=== PATIENT | female | born 1985 | race Caucasian/White ===

== ENCOUNTER 2017-03-14 13:39 | Emergency (ER) | payer OTHER ==
[2017-03-14 13:43] VITALS: TEMP 98.8
--- NOTE | 2017-03-14 14:49 | EDPHY ---
H & P Time Seen by Provider: 03/14/17 14:28 HPI/ROS: HPI Neck pain. 31-year-old female by private vehicle with her friend. This patient reports that she slipped backwards on some wet ground yesterday landing on her buttocks and then striking the back of her head on the ground. There was no loss of consciousness. She has not had any nausea or vomiting. No confusion according to her friend. She complains of right lateral neck pain, paraspinal. She reports that her neck feels stiff. She denies any midline pain. She has had no loss of sensation or weakness in her extremities. No other complaints. ROS: Constitutional: No fever, no chills. No weakness. Eyes: No discharge. No changes in vision. Musculoskeletal: No back pain. As above. No extremity pain. . Skin: No rashes. No lacerations or abrasions. Neurological: No headache. No focal weakness or altered sensation. Past medical history: Denies any significant past medical history. Social history: Here with her friend. Nonsmoker. Drinks alcohol socially. Physical Exam: General Appearance: Alert, no distress. This patient is responding to questions appropriately and in full sentences. This patient appears well- hydrated and well-nourished. Head: Normocephalic atraumatic. Face: Facial bones are stable on palpation. Eyes: Pupils equal and round and reactive to light, no pallor or injection. No lid erythema or edema. ENT, Mouth: Mucous membranes moist. Dentition is intact. No malocclusion of the jaw. No tongue lacerations or abrasions. Pharynx is clear. The bilateral nasal canals are clear. No septal hematoma. Neurological: Motor sensory function is intact. Cranial nerves are normal. Cerebellar function intact. Skin: Warm and dry, no rashes. No lacerations, abrasions or contusions. Musculoskeletal: Neck is supple she has vague tenderness on palpation through the right mid trapezius. The trachea is midline. No midline cervical, thoracic , lumbar or sacral tenderness on palpation. No flank tenderness on palpation. Extremities are symmetrical, full range of motion. All joints in the bilateral upper and bilateral lower extremities range without pain or impingement. No tenderness on palpation of the long bones in the bilateral upper and bilateral lower extremities. Psychiatric: No agitation. No depression. Database: EKG: Imaging: Procedures: Emergency department course: Vital signs reviewed and are normal. Cervical collar was placed in triage. Cervical collar was clinically cleared and removed by myself according to nexus criteria. The patient feels comfortable going home and I feel she is safe for discharge. I discussed diagnosis of cervical strain. Head injury precautions were also reviewed with her. Follow-up discussed. All of her questions were answered. She was discharged in good condition. Differential Diagnosis: The differential diagnosis on this patient includes but is not limited to cervical strain. Traumatic brain injury, cervical spine fracture/subluxation/ dislocation, other significant traumatic injury unlikely. This represents a partial list of diagnoses considered. These considerations are based on history , physical exam, past history, reassessment and diagnostic testing. Smoking Status: Former smoker Constitutional: Initial Vital Signs Temperature (C) 37.1 C 03/14/17 13:41 Heart Rate 87 03/14/17 13:41 Respiratory Rate 18 03/14/17 13:41 Blood Pressure 139/97 H 03/14/17 13:41 O2 Sat (%) 97 03/14/17 13:41 O2 Delivery Mode Room Air Allergies/Adverse Reactions: No Known Allergies Allergy (Unverified 03/14/17 13:41) Home Medications: Medication Instructions Recorded Birthr Contol Pills 03/14/17 Cyclobenzaprine [Flexeril 10 MG 10 mg PO TID #9 tab 03/14/17 (*)] Departure - Departure Disposition: Home, Routine, Self-Care Clinical Impression: Cervical strain, acute Condition: Good Instructions: Cervical Strain (ED) Additional Instructions: Read and follow provided instructions. Follow-up with the primary care physician I have provided you referral to for re -evaluation in 3-5 days and to establish a primary care physician relationship. Take medication as prescribed. Ibuprofen dosin mg every 6 hours with meals for the next 3 days only. Return to the emergency department for worsening neck pain, loss of sensation or weakness in her extremities, nausea and vomiting, confusion, worsening headache or other serious concerns. Referrals: Mercy Richard MD [Medical Doctor] - As per Instructions Stephanie Coelho MD [[facility] [place]] - As per Instructions Prescriptions: Cyclobenzaprine [Flexeril 10 MG (*)] 10 mg PO TID #9 tab
[2017-03-14 15:07] VITALS: BP 128/78; PULSE 71; RESP 16; O2SAT 98
== END 2017-03-14 15:11 | disposition home or self-care (01) ==
DX: S16.1XXA Strain of muscle, fascia and tendon at neck level, initial encounter (principal); Z87.891 Personal history of nicotine dependence; W01.198A Fall on same level from slipping, tripping and stumbling with subsequent striking against other object, initial encounter; Y99.8 Other external cause status